=== PATIENT | female | born 1980 | race Caucasian/White ===

== ENCOUNTER 2016-11-01 20:47 | Inpatient (IN) | payer OTHER ==
[~2016-11-01] VITALS: Ht 177.8 cm; Wt 130.0 kg
[2016-11-01] MEDS: AMPICILLIN 1 GM in SODIUM CHLORIDE 0.9% 50 ML IV SCH (03:30)
[2016-11-01] MEDS ORDERED: PLEASE ENTER HEIGHT AND WEIGHT MC SCH (21:30)
[2016-11-01] MEDS ORDERED: PLEASE ENTER ALLERGIES MC SCH ×2 (21:30)
[2016-11-01 21:33] LABS: HEMOGLOBIN 11.5 g/dL (11.7-16.4)
[2016-11-01] MEDS ORDERED: BETAMETHASONE 6 MG/ML, 5ML IM ONE (21:59)
[2016-11-01] MEDS: BETAMETHASONE 6 MG/ML, 5ML IM SCH (22:15)
[2016-11-01 23:27] VITALS: BP 121/66
[2016-11-02] MEDS ORDERED: METHYLERGONOVINE 0.2 MG/ML IM ONE (00:13)
[2016-11-02] MEDS ORDERED: DIPHENHYDRAMINE 25 MG CAPSULE ONE (02:13)
[2016-11-02] MEDS ORDERED: DIPHENHYDRAMINE 25 MG CAPSULE PO PRN (03:00)
[2016-11-02] MEDS ORDERED: MAGNESIUM SULF. PMX 20GM/500ML 500 ML IV ONE ×2 (07:12→15:30)
[2016-11-02 07:30] VITALS: BP 120/69
[2016-11-02] MEDS: MAGNESIUM SULF. PMX 20GM/500ML 500 ML IV SCH ×2 (07:34→15:34)
[2016-11-02] MEDS ORDERED: LACTATED RINGERS 1,000 ML IV SCH (09:00)
[2016-11-02] MEDS ORDERED: DOCUSATE 100 MG CAPSULE ONE ×2 (09:34→21:21)
[2016-11-02] MEDS: AMPICILLIN 1 GM in SODIUM CHLORIDE 0.9% 50 ML IV SCH ×4 (09:41→21:30)
[2016-11-02] MEDS: DOCUSATE 100 MG CAPSULE PO SCH ×2 (09:41→21:27)
[2016-11-02 19:51] VITALS: BP 127/68
[2016-11-02] MEDS: BETAMETHASONE 6 MG/ML, 5ML IM SCH (22:14)
[2016-11-02] MEDS: LACTATED RINGERS 1,000 ML IV SCH ×2 (22:20→23:48)
[2016-11-02] MEDS ORDERED: CALCIUM CARBONATE 500 MG TAB.CHEW ONE (23:44)
[2016-11-03] MEDS ORDERED: CALCIUM CARBONATE 500 MG TAB.CHEW PO PRN
[2016-11-03] MEDS ORDERED: MAGNESIUM SULF. PMX 20GM/500ML 500 ML IV ONE ×3 (01:39→21:09)
[2016-11-03] MEDS: MAGNESIUM SULF. PMX 20GM/500ML 500 ML IV SCH ×3 (01:41→21:18)
[2016-11-03] MEDS: BUTALBITAL HOMEMEDPO PRN (02:15)
[2016-11-03] MEDS: CAFFEINE HOMEMEDPO PRN (02:15)
[2016-11-03] MEDS: ACETAMINOPHEN HOMEMEDPO PRN (02:15)
[2016-11-03] MEDS: AMPICILLIN 1 GM in SODIUM CHLORIDE 0.9% 50 ML IV SCH ×2 (03:00→09:36)
[2016-11-03] MEDS ORDERED: DOCUSATE 100 MG CAPSULE ONE ×2 (09:21→21:09)
[2016-11-03] MEDS: DOCUSATE 100 MG CAPSULE PO SCH ×2 (09:36→21:14)
[2016-11-03] MEDS: LACTATED RINGERS 1,000 ML IV SCH ×2 (11:40→13:58)
[2016-11-03 11:45] VITALS: BP 119/60
[2016-11-03] MEDS ORDERED: NEWBORN KIT ONE (15:41)
[2016-11-03 20:29] VITALS: BP 109/59
[2016-11-03] MEDS ORDERED: DIPHENHYDRAMINE 25 MG CAPSULE ONE (21:12)
[2016-11-04] MEDS ORDERED: MAGNESIUM SULF. PMX 20GM/500ML 500 ML IV ONE (08:01)
[2016-11-04] MEDS: MAGNESIUM SULF. PMX 20GM/500ML 500 ML IV SCH (08:05)
[2016-11-04] MEDS ORDERED: BISACODYL 10 MG SUPP PR STA (08:54)
[2016-11-04] MEDS: DOCUSATE 100 MG CAPSULE PO SCH ×2 (09:00→21:00)
[2016-11-04] MEDS ORDERED: BISACODYL 10 MG SUPP ONE (10:22)
[2016-11-04] MEDS ORDERED: DIPH,PERTUSS(ACELL),TET VAC/PF NC IM-VACC PRN (12:30)
[2016-11-04] MEDS: KETOROLAC 30 MG/1 ML IV SCH ×2 (12:30→18:30)
[2016-11-04] MEDS ORDERED: MEPERIDINE/PF 50 MG/ML IM PRN (12:30)
[2016-11-04] MEDS ORDERED: MEASLES,MUMPS&RUBELLA VACC/PF 0.5 ML SQ-VACC PRN (12:30)
[2016-11-04] MEDS ORDERED: MISOPROSTOL 200 MCG TABLET PR PRN (12:30)
[2016-11-04] MEDS ORDERED: ONDANSETRON 2MG/ML, 2ML IV PRN (12:30)
[2016-11-04] MEDS ORDERED: RHOGAM FROM BLOOD BANK 1 NOTE EA IM/IV ONE (12:30)
[2016-11-04] MEDS ORDERED: OXYTOCIN 30U/ 0.9% NaCL 500ML 500 ML IV SCH (13:41)
[2016-11-04] MEDS ORDERED: METOCLOPRAMIDE 5 MG/ML, 2ML IV ONE (14:00)
[2016-11-04] MEDS ORDERED: LACTATED RINGERS 1,000 ML IVBOLUS ONE (14:00)
[2016-11-04] MEDS ORDERED: SODIUM CITRATE/CITRIC ACID 30 ML UDC PO ONE (14:00)
[2016-11-04] MEDS: LACTATED RINGERS 1,000 ML IV SCH ×3 (14:06→18:53)
[2016-11-04 14:29] LABS: HEMOGLOBIN 10.4 g/dL (11.7-16.4)
[2016-11-04] MEDS ORDERED: SODIUM CITRATE/CITRIC ACID 30 ML UDC ONE (15:43)
[2016-11-04] MEDS ORDERED: METOCLOPRAMIDE 5 MG/ML, 2ML ONE (15:43)
[2016-11-04] MEDS ORDERED: FENTANYL PF 100 MCG/2ML ONE (16:15)
[2016-11-04] MEDS ORDERED: KETOROLAC 30 MG/1 ML ONE (16:53)
[2016-11-04] MEDS ORDERED: CEFAZOLIN 1,000 MG ONE (16:53)
[2016-11-04] MEDS ORDERED: ONDANSETRON 2MG/ML, 2ML ONE (16:53)
[2016-11-04] MEDS ORDERED: OXYTOCIN 10 UNITS/ML, 1ML ONE (16:53)
[2016-11-04] MEDS ORDERED: ONDANSETRON 2MG/ML, 2ML IVPush PRN (18:30)
[2016-11-04] MEDS ORDERED: OXYcodone 5 MG/5 ML ORAL.SOL UDC PO PRN (18:30)
[2016-11-04] MEDS ORDERED: morphine SULFATE 10 MG/ML, 1ML IV PRN (18:30)
[2016-11-04] MEDS ORDERED: FENTANYL PF 100 MCG/2ML IV PRN (18:30)
[2016-11-04] MEDS ORDERED: MEPERIDINE/PF 25MG/0.5ML IVPush PRN (18:30)
[2016-11-04] MEDS ORDERED: OXYTOCIN 30U/ 0.9% NaCL 500ML 500 ML ONE (18:48)
[2016-11-04] MEDS: OXYTOCIN 30U/ 0.9% NaCL 500ML 500 ML IV SCH (18:50)
[2016-11-04] MEDS ORDERED: OXYcodone 5 MG/5 ML ORAL.SOL UDC ONE ×2 (19:28→19:32)
[2016-11-04 22:00] VITALS: BP 116/72
[2016-11-05] MEDS: BUTALBITAL HOMEMEDPO PRN (00:42)
[2016-11-05] MEDS: ACETAMINOPHEN HOMEMEDPO PRN (00:42)
[2016-11-05] MEDS: CAFFEINE HOMEMEDPO PRN (00:42)
[2016-11-05] MEDS: KETOROLAC 30 MG/1 ML IV SCH ×2 (00:42→06:46)
[2016-11-05 00:46] VITALS: BP 103/56
[2016-11-05] MEDS: OXYcodone IR 5MG TABLET PO PRN ×5 (01:15→20:36)
[2016-11-05 01:30] LABS: HEMOGLOBIN 9.5 g/dL (11.7-16.4)
[2016-11-05 03:45] VITALS: BP 110/65
[2016-11-05] MEDS: OXYTOCIN 30U/ 0.9% NaCL 500ML 500 ML IV SCH ×2 (04:00→14:00)
[2016-11-05] MEDS: LACTATED RINGERS 1,000 ML IV SCH ×3 (04:26→20:26)
[2016-11-05 07:45] VITALS: BP 124/72
[2016-11-05] MEDS: PRENATAL VIT/IRON/FA 1 EACH TABLET PO SCH (09:11)
[2016-11-05] MEDS: DOCUSATE 100 MG CAPSULE PO PRN (09:12)
[2016-11-05 10:30] LABS: HEMOGLOBIN 10.1 g/dL (11.7-16.4)
[2016-11-05 11:45] VITALS: BP 120/72
[2016-11-05] MEDS ORDERED: KETOROLAC 30 MG/1 ML ONE (12:25)
[2016-11-05] MEDS ORDERED: KETOROLAC 30 MG/1 ML IVPush ONE (13:00)
[2016-11-05 15:55] VITALS: BP 136/77
[2016-11-05] MEDS: FERROUS GLUCONATE 324 MG TABLET PO SCH (17:58)
[2016-11-05] MEDS: IBUPROFEN 600 MG TABLET PO PRN (17:58)
[2016-11-05] MEDS ORDERED: BISACODYL 5 MG EC TABLET PO PRN (18:30)
[2016-11-05 19:40] VITALS: BP 101/59
[2016-11-06] MEDS: IBUPROFEN 600 MG TABLET PO PRN ×4 (01:04→20:14)
[2016-11-06] MEDS: OXYcodone IR 5MG TABLET PO PRN ×5 (01:04→20:14)
[2016-11-06] MEDS: LACTATED RINGERS 1,000 ML IV SCH ×2 (04:26→12:26)
[2016-11-06] MEDS: DOCUSATE 100 MG CAPSULE PO PRN ×2 (08:35→20:14)
[2016-11-06 08:45] VITALS: BP 122/78
[2016-11-06] MEDS: OMEPRAZOLE 20 MG CAPSULE.DR PO SCH (09:00)
[2016-11-06] MEDS: PRENATAL HOMEMEDPO SCH (09:00)
[2016-11-06] MEDS: DHA HOMEMEDPO SCH (09:00)
[2016-11-06] MEDS ORDERED: BISACODYL 10 MG SUPP PR ONE (09:00)
[2016-11-06] MEDS: PRENATAL VIT/IRON/FA 1 EACH TABLET PO SCH (09:00)
[2016-11-06] MEDS: OXYTOCIN 30U/ 0.9% NaCL 500ML 500 ML IV SCH ×2 (10:00)
[2016-11-06] MEDS: FERROUS GLUCONATE 324 MG TABLET PO SCH (17:16)
[2016-11-06 19:50] VITALS: BP 133/80
[2016-11-07] MEDS: OXYcodone IR 5MG TABLET PO PRN ×5 (00:39→23:06)
[2016-11-07] MEDS: IBUPROFEN 600 MG TABLET PO PRN ×4 (03:11→23:06)
[2016-11-07 06:02] VITALS: BP 125/76
[2016-11-07] MEDS: DOCUSATE 100 MG CAPSULE PO PRN ×2 (08:05→23:06)
[2016-11-07] MEDS: PRENATAL HOMEMEDPO SCH (09:00)
[2016-11-07] MEDS: OMEPRAZOLE 20 MG CAPSULE.DR PO SCH (09:00)
[2016-11-07] MEDS: DHA HOMEMEDPO SCH (09:00)
[2016-11-07] MEDS: FERROUS GLUCONATE 324 MG TABLET PO SCH (17:03)
[2016-11-07 20:00] VITALS: BP 131/77
[2016-11-08] MEDS ORDERED: OXYC-302 PO (04:43)
[2016-11-08] MEDS ORDERED: IBUP-1222 PO (04:45)
[2016-11-08] MEDS: IBUPROFEN 600 MG TABLET PO PRN ×2 (05:14→11:31)
[2016-11-08] MEDS: OXYcodone IR 5MG TABLET PO PRN ×2 (05:14→11:32)
[2016-11-08 08:15] VITALS: BP 141/88
[2016-11-08] MEDS: PRENATAL HOMEMEDPO SCH (09:00)
[2016-11-08] MEDS: OMEPRAZOLE 20 MG CAPSULE.DR PO SCH (09:00)
[2016-11-08] MEDS: DHA HOMEMEDPO SCH (09:00)
[2016-11-08] MEDS: DOCUSATE 100 MG CAPSULE PO PRN (11:31)
== END 2016-11-08 12:00 | disposition home or self-care (01) | DRG 765 ==
LOC: LDOP 20:47 → LDIP 21:06 → 2NW 11-04 20:52
PROVIDERS: ADMIT Specialist; ATTEND Specialist
PROC: 0T9B70Z Drainage of Bladder with Drainage Device, Via Natural or Artificial Opening (ICD-10-PCS; 2016-11-02)
PROC: 10D00Z1 Extraction of Products of Conception, Low, Open Approach (ICD-10-PCS; principal; 2016-11-04)
DX: O42.913 Preterm premature rupture of membranes, unspecified as to length of time between rupture and onset of labor, third trimester (principal); O30.043 Twin pregnancy, dichorionic/diamniotic, third trimester; O34.211 Maternal care for low transverse scar from previous cesarean delivery; O99.344 Other mental disorders complicating childbirth; F32.9 Major depressive disorder, single episode, unspecified; O90.81 Anemia of the puerperium; D64.9 Anemia, unspecified; Z83.3 Family history of diabetes mellitus; Z37.2 Twins, both liveborn; Z82.49 Family history of ischemic heart disease and other diseases of the circulatory system; Z3A.34 34 weeks gestation of pregnancy; Z23 Encounter for immunization
CPT/HCPCS: 36415; 81003; 83735; 85025; 86850; 86900; 87081; 87086; 90715; J0290; J0690; J0702; J1885; J2175; J2405; J3010; J2590; J2765; J3475; J7120; Q0163